=== PATIENT | male | born 1945 | race Caucasian/White ===

== ENCOUNTER → 2020-01-10 13:29 | Outpatient (CLI) | payer MEDICARE, SELFPAY ==
[2020-01-10 14:09] LABS: Chloride 103 mmol/L (98-107)
[2020-01-10 14:10] LABS: Potassium 4.6 mmoL/L (3.5-5.1); Sodium 139 mmol/L (136-145)
[2020-01-10 14:12] LABS: Alanine Aminotransferase 17 U/L (12-78); Albumin Level 3.9 g/dl (3.5-5.0); Albumin/Globulin Ratio 1.3 (1.1-1.8); Alkaline Phosphatase 93 U/L (38-126); Aspartate Amino Transferase 27 U/L (17-59); Bilirubin,Total 0.7 mg/dl (0.2-1.3); Blood Urea Nitrogen 17 mg/dl (9-20); Estimated Glomerular Filt Rate 60 ml/min (>60); GFR (African American) 72 ML/MIN (>60); Globulin 3.1 g/dL (1.3-3.2)
[2020-01-10 14:13] LABS: Anion Gap 12.6 mEq/L (5-15); Calcium 8.9 mg/dl (8.4-10.2); Carbon Dioxide 28 mmol/L (22.0-30.0); Glucose 104 mg/dl (74-100)
[2020-01-10 14:32] LABS: Hemoglobin A1C 7.3 % (4.0-6.0)
== END ==
PROVIDERS: Visit Provider Family Medicine
DX: E11.9 Type 2 diabetes mellitus without complications (principal)
CPT/HCPCS: 80053; 83036

== ENCOUNTER → 2020-06-27 18:28 | Outpatient (CLI) | payer MEDICARE, SELFPAY ==
[2020-06-27 19:37] LABS: Alanine Aminotransferase 17 U/L (12-78); Albumin Level 3.9 g/dl (3.5-5.0); Albumin/Globulin Ratio 1.2 (1.1-1.8); Alkaline Phosphatase 116 U/L (38-126); Anion Gap 10.7 mEq/L (5-15); Aspartate Amino Transferase 23 U/L (17-59); Bilirubin,Total 0.4 mg/dl (0.2-1.3); Blood Urea Nitrogen 20 mg/dl (9-20); Carbon Dioxide 28 mmol/L (22.0-30.0); Chloride 102 mmol/L (98-107); Estimated Glomerular Filt Rate 59 ml/min (>60); GFR (African American) 72 ML/MIN (>60); Globulin 3.2 g/dL (1.3-3.2); Glucose 214 mg/dl (74-100); Potassium 4.7 mmoL/L (3.5-5.1); Sodium 136 mmol/L (136-145); Total Protein,Serum 7.1 g/dl (6.3-8.2)
[2020-06-27 19:52] LABS: Hemoglobin A1C 8.3 % (4.0-6.0)
== END ==
PROVIDERS: Visit Provider Family Medicine
DX: E11.9 Type 2 diabetes mellitus without complications (principal)
CPT/HCPCS: 80053; 83036

== ENCOUNTER → 2021-05-08 13:42 | Outpatient (CLI) | payer MEDICARE, SELFPAY ==
[2021-05-08 14:17] LABS: Basophils # 0.1 K/mm3 (0-0.2); Basophils % 1.1 % (0.1-2.0); Eosinophils # 0.2 K/mm3 (0.0-0.4); Hematocrit 42.9 % (42.0-52.0); Hemoglobin 13.7 g/dL (14.1-18.0); Lymphocytes # 1.2 K/mm3 (0.7-4.5); Lymphocytes % 21.6 % (10-50); Mean Corpuscular Hemoglobin 30.1 pg (27.0-31.2); Mean Corpuscular Volume 93.9 fl (80-94); Mean Platelet Volume 9.4 fl (7.4-10.4); Monocytes # 0.5 K/mm3 (0.1-1.0); Monocytes % 8.2 % (1.7-9.3); Neutrophils # 3.8 K/mm3 (1.8-7.8); Neutrophils % 66.1 % (37.0-80.0); Platelet Count 345 K/mm3 (142-424); Red Blood Count 4.57 M/mm3 (4.60-6.20); Red Cell Distribution Width 13.9 % (11.5-17.5); White Blood Count 5.7 K/mm3 (4.8-10.8)
[2021-05-08 15:41] LABS: Alanine Aminotransferase 17 U/L (12-78); Albumin Level 4.1 g/dl (3.5-5.0); Albumin/Globulin Ratio 1.4 (1.1-1.8); Alkaline Phosphatase 115 U/L (38-126); Anion Gap 11.4 mEq/L (5-15); Aspartate Amino Transferase 25 U/L (17-59); Bilirubin,Total 0.5 mg/dl (0.2-1.3); Blood Urea Nitrogen 17 mg/dl (9-20); Calcium 8.8 mg/dl (8.4-10.2); Carbon Dioxide 30 mmol/L (22.0-30.0); Chloride 103 mmol/L (98-107); Cholesterol 176 mg/dl (140-200); Estimated Glomerular Filt Rate 66 ml/min (>60); GFR (African American) 79 ML/MIN (>60); Globulin 2.9 g/dL (1.3-3.2); Glucose 129 mg/dl (74-100); HDL Cholesterol 35 mg/dl (40-60); Potassium 5.4 mmoL/L (3.5-5.1); Sodium 139 mmol/L (136-145); Triglycerides 102 mg/dl (30-150); VLDL Cholesterol 20 mg/dL (0-40)
[2021-05-08 15:52] LABS: Direct LDL Cholesterol 110.63 mg/dL (100-129)
[2021-05-08 16:09] LABS: Prostate Specific Ag Screen 1.2 ng/ml (0.0-4.0)
[2021-05-08 16:14] LABS: Hemoglobin A1C 7.9 % (4.0-6.0)
== END ==
PROVIDERS: Visit Provider Family Medicine
DX: E11.9 Type 2 diabetes mellitus without complications (principal); Z12.5 Encounter for screening for malignant neoplasm of prostate; Z79.84 Long term (current) use of oral hypoglycemic drugs
CPT/HCPCS: 80053; 80061; 83036; 85025; G0103

== ENCOUNTER → 2021-12-31 08:21 | Outpatient (CLI) | payer MEDICARE, SELFPAY ==
[2021-12-28 18:59] LABS: Alanine Aminotransferase 23 U/L (12-78); Albumin Level 3.5 g/dl (3.5-5.0); Albumin/Globulin Ratio 1.3 (1.1-1.8); Alkaline Phosphatase 104 U/L (38-126); Anion Gap 12.5 mEq/L (5-15); Aspartate Amino Transferase 26 U/L (17-59); Blood Urea Nitrogen 18 mg/dl (9-20); Calcium 8.7 mg/dl (8.4-10.2); Carbon Dioxide 23 mmol/L (22.0-30.0); Chloride 104 mmol/L (98-107); Estimated Glomerular Filt Rate 59 ml/min (>60); GFR (African American) 72 ML/MIN (>60); Globulin 2.8 g/dL (1.3-3.2); Glucose 235 mg/dl (74-100); Potassium 4.5 mmoL/L (3.5-5.1); Sodium 135 mmol/L (136-145); Total Protein,Serum 6.3 g/dl (6.3-8.2)
[2021-12-28 19:01] LABS: Basophils % 0.8 % (0.1-2.0); Eosinophils # 0.1 K/mm3 (0.0-0.4); Eosinophils % 2.6 % (0.1-12.0); Hematocrit 41.4 % (42.0-52.0); Lymphocytes # 1.2 K/mm3 (0.7-4.5); Lymphocytes % 22.1 % (10-50); Mean Corpuscular HGB Conc 31.3 g/dL (31.8-35.4); Mean Corpuscular Hemoglobin 29.6 pg (27.0-31.2); Mean Corpuscular Volume 94.4 fl (80-94); Mean Platelet Volume 10.3 fl (7.4-10.4); Monocytes # 0.5 K/mm3 (0.1-1.0); Monocytes % 9.6 % (1.7-9.3); Neutrophils # 3.4 K/mm3 (1.8-7.8); Platelet Count 245 K/mm3 (142-424); Red Blood Count 4.38 M/mm3 (4.60-6.20); White Blood Count 5.2 K/mm3 (4.8-10.8)
[2021-12-28 19:03] LABS: Bilirubin,Total < 0.1 mg/dl (0.2-1.3)
[2021-12-28 19:14] LABS: 25-OH Vitamin D, Total 29.3 ng/mL (30-100)
[2021-12-28 19:28] LABS: Thyroid Stimulating Hormone 0.91 uIU/mL (0.465-4.68)
== END ==
PROVIDERS: Visit Provider Family Medicine
DX: B37.2 Candidiasis of skin and nail (principal); E11.9 Type 2 diabetes mellitus without complications; E55.9 Vitamin D deficiency, unspecified
CPT/HCPCS: 80053; 82306; 83036; 84443; 85025

== ENCOUNTER → 2022-08-16 13:59 | Outpatient (CLI) | payer MEDICARE, SELFPAY ==
--- NOTE | 2022-08-16 14:05 | XR_ITS ---
FINAL REPORT CLINICAL HISTORY: pna last week FINDINGS: PA and lateral views of the chest are obtained. There is no prior exam for comparison. The cardiac and mediastinal silhouettes are within normal limits. The lungs are clear. There is no pleural effusion, pneumothorax, or acute osseous abnormality. IMPRESSION: No radiographic evidence of acute cardiac or pulmonary disease. Reviewed, Interpreted and Dictated by Herlinda Meier MD Transcribed by Tiesha Virgen Authenticated and . [facility]
[2022-08-19 09:41] LABS: Alanine Aminotransferase 24 U/L (12-78); Albumin Level 3.8 g/dl (3.5-5.0); Albumin/Globulin Ratio 1.3 (1.1-1.8); Alkaline Phosphatase 116 U/L (38-126); Anion Gap 8.4 mEq/L (5-15); Aspartate Amino Transferase 35 U/L (17-59); Bilirubin,Total 0.4 mg/dl (0.2-1.3); Blood Urea Nitrogen 19 mg/dl (9-20); Calcium 8.1 mg/dl (8.4-10.2); Carbon Dioxide 27 mmol/L (22.0-30.0); Chloride 105 mmol/L (98-107); Estimated Glomerular Filt Rate 73 ml/min (>60); GFR (African American) 88 ML/MIN (>60); Globulin 2.9 g/dL (1.3-3.2); Potassium 4.4 mmoL/L (3.5-5.1); Sodium 136 mmol/L (136-145); Total Protein,Serum 6.7 g/dl (6.3-8.2)
[2022-08-19 09:58] LABS: Glucose 245 mg/dl (74-100)
[2022-08-19 10:12] LABS: Prostate Specific Ag Screen 1.3 ng/ml (0.0-4.0)
== END ==
PROVIDERS: PCP Family Medicine; Visit Provider Family Medicine
DX: J18.9 Pneumonia, unspecified organism (principal); E11.9 Type 2 diabetes mellitus without complications; I10 Essential (primary) hypertension; Z12.5 Encounter for screening for malignant neoplasm of prostate
CPT/HCPCS: 71046; 80053; G0103

== ENCOUNTER → 2023-05-19 08:35 | Outpatient (CLI) | payer MEDICARE, SELFPAY ==
[2023-05-19 19:42] LABS: Alanine Aminotransferase 19 U/L (12-78); Albumin Level 3.7 g/dl (3.5-5.0); Albumin/Globulin Ratio 1.2 (1.1-1.8); Alkaline Phosphatase 109 U/L (38-126); Anion Gap 12.3 mEq/L (5-15); Aspartate Amino Transferase 25 U/L (17-59); Basophils # 0.1 K/mm3 (0-0.2); Basophils % 0.8 % (0.1-2.0); Bilirubin,Total 0.2 mg/dl (0.2-1.3); Blood Urea Nitrogen 18 mg/dl (9-20); Calcium 8.7 mg/dl (8.4-10.2); Carbon Dioxide 28 mmol/L (22.0-30.0); Chloride 98 mmol/L (98-107); Eosinophils # 0.2 K/mm3 (0.0-0.4); Eosinophils % 3.7 % (0.1-12.0); Estimated Glomerular Filt Rate 59 ml/min (>60); GFR (African American) 71 ML/MIN (>60); Globulin 3.1 g/dL (1.3-3.2); Glucose 338 mg/dl (74-100); Hematocrit 41.1 % (42.0-52.0); Hemoglobin 13.7 g/dL (14.1-18.0); Lymphocytes # 1.2 K/mm3 (0.7-4.5); Lymphocytes % 18.5 % (10-50); Mean Corpuscular HGB Conc 33.3 g/dL (31.8-35.4); Mean Corpuscular Hemoglobin 29.6 pg (27.0-31.2); Mean Corpuscular Volume 89.1 fl (80-94); Mean Platelet Volume 10.5 fl (7.4-10.4); Monocytes # 0.5 K/mm3 (0.1-1.0); Monocytes % 7.6 % (1.7-9.3); Neutrophils # 4.4 K/mm3 (1.8-7.8); Neutrophils % 69.4 % (37.0-80.0); Platelet Count 242 K/mm3 (142-424); Potassium 4.3 mmoL/L (3.5-5.1); Red Blood Count 4.62 M/mm3 (4.60-6.20); Red Cell Distribution Width 14.1 % (11.5-17.5); Sodium 134 mmol/L (136-145); Total Protein,Serum 6.8 g/dl (6.3-8.2); White Blood Count 6.4 K/mm3 (4.8-10.8)
[2023-05-19 19:57] LABS: Free T4 (Free Thyroxine) 1.15 ng/dl (0.78-2.19)
[2023-05-19 20:11] LABS: Thyroid Stimulating Hormone 1.22 uIU/mL (0.465-4.68)
[2023-05-19 20:40] LABS: Hemoglobin A1C 10.3 % (4.0-6.0)
== END ==
LOC: LAB.DROPOF 05-20 08:36
PROVIDERS: PCP Family Medicine; Visit Provider Family Medicine
DX: Z00.00 Encounter for general adult medical examination without abnormal findings (principal); I10 Essential (primary) hypertension; Z85.01 Personal history of malignant neoplasm of esophagus; E11.9 Type 2 diabetes mellitus without complications
CPT/HCPCS: 80053; 83036; 84439; 84443; 85025

== ENCOUNTER → 2023-06-06 12:32 | Outpatient (CLI) | payer MEDICARE, SELFPAY ==
--- NOTE | 2023-06-06 12:46 | CT_ITS ---
FINAL REPORT TECHNIQUE: Axial images through the neck soft tissue was obtained with and without contrast. Sagittal and coronal reformatted images were obtained and reviewed. This study was performed with techniques to keep radiation doses as low as reasonably achievable (ALARA). Individualized dose reduction techniques using automated exposure control or adjustment of mA and/or kV according to the patient's size were employed. CLINICAL HISTORY: Left thyroid mass FINDINGS: The nasopharynx, oral pharynx, hypopharynx, and larynx are unremarkable. No left thyroid mass or nodule is identified. There are several, less than 1 cm right thyroid lobe nodules. There are postoperative changes at the left base of the neck. There are moderate degenerative changes of the cervical spine. There are postoperative changes of the thoracic esophagus. IMPRESSION: No left thyroid mass or nodule. Several right thyroid lobe nodules. If indicated, follow-up ultrasound may be helpful. Reviewed, Interpreted and Dictated by Dann Alxe III, MD Transcribed by Sana Palomares Authenticated and [facility]
--- NOTE | 2023-06-06 12:46 | US_ITS ---
FINAL REPORT TECHNIQUE: Limited sonographic images of the thyroid were obtained. CLINICAL HISTORY: Left thyroid mass FINDINGS: The right lobe of the thyroid measures 5.1 x 2.1 x 2.3 cm. There is a 17 x 16 x 13 mm mostly solid, hypoechoic nodule consistent with TI-RADS category 3. There is a solid, hypoechoic nodule measuring 6 x 6 x 5 mm consistent with TI-RADS category 4. There is also a solid, hypoechoic nodule with microcalcification measuring 6 x 6 x 4 mm consistent with TI-RADS category 4. The left lobe of the thyroid measures 4.5 x 1.6 x 1.4 cm. There is a solid, hypoechoic nodule in the upper left thyroid lobe measuring 3 x 3 x 3 mm consistent with TI-RADS category 4. The isthmus measures 3 mm. IMPRESSION: Bilateral thyroid nodules as detailed above. Recommend continued follow-up in 6-12 months. Reviewed, Interpreted and Dictated by Dann Alex III, MD Transcribed by Sana Palomares Authenticated and [facility]
--- NOTE | 2023-06-06 13:06 | CA_ITS ---
APPROVED REPORT EXAM: Comprehensive 2D, Doppler, and color-flow Echocardiogram [employer] Director: Emily Moore, RT(R) Ht: 5 ft 7 in Wt: 209lbs BSA: 2.06 BP: 110/60 mmHg Indications: murmur, lipoma, thyroid mass, hx of esophageal cancer, HTN, hyperlipidemia 2D Dimensions Left Atrium 3.19 cm M: 3.0 - 4.0 LA Volume 31.80 mL LVOT 1.94 cm (M/F) 1.5-2.5 LA Volume Index 15.44 mL/m2 (M/F) 16-34 EF AP4 52.40 % GL Strain -15.6 % M-Mode Dimensions RVDd 3.00 cm (0.9-2.6) LVDd 4.04 cm (3.5-5.7) Ao Diam 3.30 cm (2.0-3.7) LVDs 3.07 cm (3.5-5.7) IVSd 1.25 cm (0.6-1.1) PWd 0.75 cm (0.6-1.1) EF (Teich) 48.40% FS 24.00% EDV (Teich) 71.70 mL ESV (Teich) 37.00 mL LV Diastology E Decel Time 167 (160-240 msec) E/A Ratio 0.7 MED E' 7.7 (>= 7 cm/sec) E'/MED E' Ratio 12.75 (<= 14) LAT E' 6.9 (>= 10 cm/sec) E/LAT E' Ratio 14.23 (<= 14) Aortic Valve LVOT Max 88.0 (70-110 cm/s) ALEXIS Index 0.67 cm2/m2 LVOT VTI 18.29 cm AoV Peak Ej. 200.0 (50-130 cm/s) AO Mean GR. 7.80 (<5 mmHg) AO VTI 39.5 (18-25 cm) ALEXIS (VTI) 1.37 (2.5-4.5 cm2) Mitral Valve MV E Max Ej. 98.0 (40-130 cm/s) MV A Velocity 147.0 (40-130 cm/s) E/A Ratio 0.67 MV Decel. Time 167 (160-240 ms) Tricuspid Valve TR P. Velocity 259.00 cm/s RAP Estimate 10.00 mmHg RVSP 36.90 mmHg Left Ventricle The left ventricle is normal size. The left ventricular systolic function is normal. The left ventricular ejection fraction is within the normal range. There is increased LV wall thickness. There is normal LV segmental wall motion. Diastolic function is indeterminate. LVEF is 55%. Right Ventricle The right ventricle is mildly dilated. The right ventricular systolic function is normal. Atria The left atrium size is normal. The right atrium size is normal. There is no Doppler evidence of interatrial shunt. Aortic Valve The aortic valve leaflets are mildly thickened. There is no aortic valvular stenosis. Mild aortic regurgitation. Mitral Valve Mild mitral annular calcification. The mitral valve leaflets are mildly thickened. No evidence of mitral valve stenosis. Mild mitral regurgitation. Tricuspid Valve The tricuspid valve leaflets are thin and pliable. Mild tricuspid regurgitation. RVSP is 25-30 mmHg. Pulmonic Valve The pulmonary valve is normal in structure. Trace normal biventricular systolic function. Pulmonic regurgitation. Great Vessels The aortic root is normal in size. The ascending aorta is normal in size. IVC is normal in size and collapses >50% with inspiration. Pericardium There is no pericardial effusion. Other Information Study Quality: Technically Difficult Conclusion Technically difficult study due to poor acoustic windows. Normal biventricular systolic function. Mild RV dilation. Mild AI, mild MR, mild TR. RVSP 25-30 mmHg. Electronically signed by : Maria Teresa Nicholas MD 06/09/2023 21:19:11
== END ==
PROVIDERS: PCP Family Medicine; Visit Provider Family Medicine
DX: D17.9 Benign lipomatous neoplasm, unspecified (principal); R22.1 Localized swelling, mass and lump, neck; I10 Essential (primary) hypertension; R01.1 Cardiac murmur, unspecified
CPT/HCPCS: 70492; 76536; 93306; Q9967

== ENCOUNTER 2024-04-09 12:16 | Outpatient (CLI) | payer MEDICARE, SELFPAY ==
[2024-04-09 17:56] LABS: Basophils % 0.8 % (0.1-2.0); Eosinophils # 0.2 K/mm3 (0.0-0.4); Eosinophils % 3.6 % (0.1-12.0); Hematocrit 39.4 % (42.0-52.0); Hemoglobin 13.3 g/dL (14.1-18.0); Lymphocytes # 1.2 K/mm3 (0.7-4.5); Lymphocytes % 22.4 % (10-50); Mean Corpuscular HGB Conc 33.7 g/dL (31.8-35.4); Mean Corpuscular Hemoglobin 29.4 pg (27.0-31.2); Mean Corpuscular Volume 87.1 fl (80-94); Mean Platelet Volume 8.9 fl (7.4-10.4); Monocytes # 0.5 K/mm3 (0.1-1.0); Monocytes % 8.3 % (1.7-9.3); Neutrophils # 3.5 K/mm3 (1.8-7.8); Platelet Count 278 K/mm3 (142-424); Red Blood Count 4.53 M/mm3 (4.60-6.20); Red Cell Distribution Width 14.6 % (11.5-17.5); White Blood Count 5.4 K/mm3 (4.8-10.8)
[2024-04-09 18:18] LABS: Alanine Aminotransferase 21 U/L (12-78); Albumin Level 3.8 g/dl (3.5-5.0); Albumin/Globulin Ratio 1.3 (1.1-1.8); Alkaline Phosphatase 104 U/L (38-126); Anion Gap 2.6 mEq/L (5-15); Aspartate Amino Transferase 27 U/L (17-59); Bilirubin,Total 0.7 mg/dl (0.2-1.3); Blood Urea Nitrogen 17 mg/dl (9-20); Calcium 9.1 mg/dl (8.4-10.2); Carbon Dioxide 32 mmol/L (22.0-30.0); Chloride 105 mmol/L (98-107); Chol/HDL Ratio 3.9 (1-3.5); Cholesterol 193 mg/dl (140-200); Estimated Glomerular Filt Rate 59 ml/min (>60); GFR (African American) 71 ML/MIN (>60); Globulin 2.9 g/dL (1.3-3.2); Glucose 112 mg/dl (74-100); HDL Cholesterol 50 mg/dl (40-60); Potassium 4.6 mmoL/L (3.5-5.1); Sodium 135 mmol/L (136-145); Total Protein,Serum 6.7 g/dl (6.3-8.2); Triglycerides 113 mg/dl (30-150); VLDL Cholesterol 23 mg/dL (0-40)
[2024-04-09 18:29] LABS: Direct LDL Cholesterol 112.97 mg/dL (100-129)
[2024-04-09 18:43] LABS: Hemoglobin A1C 8.5 % (4.0-6.0)
[2024-04-09 18:48] LABS: Prostate Specific Ag Screen 1.4 ng/ml (0.0-4.0)
[2024-04-09 20:07] LABS: Thyroid Stimulating Hormone 0.93 uIU/mL (0.465-4.68)
== END 2024-04-09 23:59 | disposition home or self-care (01) ==
LOC: LAB.DROPOF 04-10 10:37
PROVIDERS: PCP Family Medicine; Visit Provider Family Medicine
DX: E78.5 Hyperlipidemia, unspecified (principal); I10 Essential (primary) hypertension; E11.9 Type 2 diabetes mellitus without complications; Z12.5 Encounter for screening for malignant neoplasm of prostate; E04.1 Nontoxic single thyroid nodule; Z85.01 Personal history of malignant neoplasm of esophagus; D17.9 Benign lipomatous neoplasm, unspecified
CPT/HCPCS: 80053; 80061; 83036; 84443; 85025; G0103

== ENCOUNTER 2024-10-19 10:29 | Outpatient (CLI) | payer MEDICARE, SELFPAY ==
--- OUTSIDE RECORDS SUMMARY | 2024-10-19 10:32 | XMS_ITS | Data Portability ---
Author Organization [place] - [facility] [place], [facility] ADMIN Address [address] [place] [address] Assessment No assessment recorded. Plan of Treatment Reminders Order Date Submit Date Provider Last Modified By Organization Details Last Modified Time Details Appointments None record ed. Lab None record ed. Referral None record ed. Procedures None record ed. Surgeries None record ed. Imaging None record ed. Medication Orders None record ed. Patient TargetsNo targets recorded. Patient Instructions Encounter Date Encounter Id Patient Instructions Last Modified By Organization Details Last Modified Time 04/23/2022 [id number] Danay Concepcion APRN have reviewed the past medical, medications, family, and social histories along with ROS and all orders in today? s record, and have noted any changes. [email or web address] Not available 04/23/2022 15:49:13 Reason for Referral None Reported. Problems Name Problem SNOMED Code Status Onset Date Resolution Date Notes Provider Name and Address Organization Details Recorded Time Hypertensi ve disorder 64494082 Active Eva Daniele null, [place] - [facility] - [facility] [place] 2 14:43:14 Diabetes mellitus 41782281 Active [place] Daniele null, [place] [facility] [place] 2 14:43:24 Hyperchole sterolemia 50947943 Active Eva Daniele null, [place] [facility] [place] 2 14:43:38 Allergic rhinitis 14951821 Active Eva Daniele null, [place] [facility] [place] 2 14:44:00 Anxiety 34030345 Active Eva Daniele null[place] - [facility] - [facility] & [place] 2 14:44:10 History of malignant neoplasm 973745696 Active Eva Daniele null, [place] - [facility] - [place] & [place] 2 14:44:32 Otalgia of left ear 9226813355 Active 2021 [address], [place], [address] , [place] - [facility] - [place] & [place] 2 15:00:12 Foreign body in left ear 2235347310841 9100 Active 2021 [address], [place], [address] , [place] - [facility] - [place] & [place] 2 15:00:17 Sensorineu ral hearing loss of bilateral ears 845658179 Active 2021 YOANDY Valentino [address] [place] [address],[address], [place], [address] , [place] [facility] - [place] & [place] 2 15:48:25 Sensorineu ral hearing loss 78967254 Active 2023 CHAUNCEY CASTANO, AUD [address] [facility], [place], [address] , [place] - [facility] - [place] & [place] 4 14:16:34 Problem Notes None recorded. Procedures Surgical History Date Name Laterality Status Provider Name and Address Organization Details Recorded Time 01/22/20 23 Removal of foreign body from ear canal completed YOANDY Valentino [address] [place] [address],[address], [place], [address], [place] [facility] - [place] & [place] 01/21/2023 10:52:02 04/23/20 22 Removal of foreign body from ear canal completed YOANDY Valentino [address] [place] [address],[address], [place], [address], [place] [facility] - [place] & [place] 04/23/2022 14:59:48 cholecystectomy completed Eva Daniele [place] - [facility] - [place] & [place] 04/23/2022 14:45:48 hemorrhoidectomy completed Eva Sanabria [place] - [facility] - [place] & [place] 04/23/2022 14:46:07 procedure on esophagus completed Eva NAIR - [facility] & [place] 04/23/2022 14:47:00 Imaging Results None recorded. Procedure Notes None recorded. Medical Equipment None Reported. Allergies No known drug allergies Medications Name Sig Start Date Stop Date Status Note LastModified by Organization Details LastModified Time benzonatate 200 mg capsule active Not Available Not Available Not Available hydrocodone 5 mg-acetaminophen 325 mg tablet active Not Available Not Availabl e Not Available ondansetron HCl 4 mg tablet active Not Available Not Available No t Available glimepiride 2 mg tablet active Not Available Not Available Not Available amoxicillin 875 mg tablet active Not Available Not Available Not Available meclizine 25 mg tablet active Not Available Not Available Not Available amlodipine 10 mg tablet active Not Available Not Available Not Available metformin 1,000 mg tablet active Not Available Not Available Not Available omeprazole 20 mg capsule,delayed release active Not Available Not Available Not Available levofloxacin 500 mg tablet active Not Available Not Available Not Available levofloxacin 750 mg tablet active Not Available Not Available Not Available methylprednisolone 4 mg tablets in a dose pack active Not Available Not Available No t Available albuterol sulfate HFA 90 mcg/actuation aerosol inhaler active Not Available Not Availa ble Not Available paroxetine 40 mg tablet active Not Available Not Available Not Available cefdinir 300 mg capsule active Not Available Not Available Not Available losartan 100 mg tablet active Not Available Not Available Not Available fluticasone propionate 50 mcg/actuation nasal spray,suspension active Not Available Not Avail able Not Available amoxicillin 875 mg-potassium clavulanate 125 mg tablet active Not Available Not Available Not Available amlodipine 10 mg-benazepril 20 mg capsule active Not Available Not Available Not Available Mucus DM Max ER 60 mg-1,200 mg tablet,extended release active Not Available Not Available Not Available Vitals Date Recorded Body height Provider Name an d Address Organization Details Last Updated DateTime 07/02/2022 174.24 cm Eva NAIR - [facility] & [place] 07/02/2022 11:56:12 Date Recorded Body height Oxygen saturation Oxygen saturation in Arterial blood by Pulse oximetry Heart rate Systolic blood pressure Diastolic blood pressure Provider Name and Address Organization Details Last Updated DateTime 3 174.24 cm 96 % 96 % 83 /min 118 mm[Hg] 70 mm[Hg] Nicole Caicedo [place] - [facility] & [facility] 10:37:16 Date Recorded Body height Body mass index (BMI) Body weight Provider Name and Address Organization Details Last Updated DateTime 04/23/2022 174.24 cm 31.1 kg/m2 11387.21 g Eva Sanabria [place] - [facility] & [facility] 04/23/2022 14:22:18 Social History None recorded. Functional Status None recorded. Mental Status None recorded. Family History Relationship Description Onset Age of this Age Resolved Age Notes LastModified by Organization Details LastModified Time Father Malignant neoplasm of brain deceas ed [email or web address] Not available 04/23/2022 14:44:57 Father Malignant tumor of colon [email or web address] Not available 2021 14:45:16 Medical History Condition Response Anxiety Disorder Y Allergies/Hayfever Y Cancer Y Hypertension Y Past Encounters Encounter ID Performer Location Encounter Start Date Encounter Closed Date Diagnosis/Indication Diagnosis SNOMED-CT Code Diagnosis ICD10 Code Diagnosis Note [id number] [place] [address] 04/23/2022 14:04:59 04/23/2022 14:26:28 Foreign body in left ear 8445213356 6489590 T16.2XXA Hearing aid tip removed from left eac at today's visit. No trauma from removal. Follow up prn., Otalgia of left ear 1010 274613 H92.02 This is improved following removal. Advised patient to call the office if he has any residual pain or recurrence of pain. Sensorineu ral hearing loss of bilateral ears 177174544 H90.3 Continue hearing aid use. [id number] YOANDY Valentino[address] [place] [address] 07/02/2022 11:55:06 07/02/2022 11:58:59 Foreign body in left ear 1000809260 7025703 T16.2XXA Hearing aid tip removed from left eac at today's visit. No trauma from removal. Follow up prn., [id number] YOANDY ValentinoLC [address] [place] [address] 01/21/2023 10:32:02 01/21/2023 10:59:50 Foreign body in left ear 1648081299 1383885 T16.2XXA Hearing aid tip removed from left eac at today's visit. No trauma from removal. Follow up prn., [id number] SAMIRA ALCAZAR ENT [facility] [facility] [place] [address] 03/29/2024 13:43:13 03/29/2024 14:13:35 Sensorineural hearing loss 49827412 H90.3 Health Concerns Section Related Observation LastModified by Organization Detai ls LastModified Time None Recorded Concern Status LastModified by Organization Details LastModified Time None Recorded Advance Directives Directive None Recorded Payers Encounter Date Sequence Insurance Name Policy Number Policy Gaxiola Covered Member ID Gaxiola Member ID Guarantor Name 04/23/2022 1 [place] Dann Lino Aysha [id number] Dann Huynh Aysha 04/23/2022 2 [facility] (MEDICARE REPLACEMENT/A DVANTAGE - PPO) [id number] Dann Olmstead [id number] Dann Lino Aysha 07/02/2022 1 [place] Dann Lino Aysha [id number] Dann Huynh Aysha 07/02/2022 2 [facility] (MEDICARE REPLACEMENT/A DVANTAGE - PPO) [id number] Dann Olmstead [id number] Dann Lino Aysha 01/21/2023 1 [place] Dann Lino Aysha [id number] Dann Lino Aysha 01/21/2023 2 [facility] (MEDICARE REPLACEMENT/A DVANTAGE - PPO) [id number] Dann Olmstead [id number] Dann Olmstead 03/29/2024 1 [place] Dann Lino Aysha [id number] Dann Lino Aysha 03/29/2024 2 [facility] (MEDICARE REPLACEMENT/A DVANTAGE - PPO) [id number] Dann Olmstead [id number] Dann Olmstead Notes Date Note Type Note Provider Name and Address Organization Details Recorded Time 04/23/2022 text/html Patient thinks he has a hearing aid tip stuck in left ear. He reports pain in the left ear that started this morning. He reports his did try to get the hearing aid tip out for him with no luck. He wears hearing aids in both ears. YOANDY Valentino [address] [facility],[address], [place], [address], [facility] [place] & [place] 04/23/2022 15:50:47 01/21/2023 text/html Patient is here for hearing aide tip removal, states he thinks the tip of his hearing aide is in his left ear. YOANDY Valentino [address] [facility] [address], [place], [address], [facility] - [facility] - [place] & [place] 01/21/2023 10:52:26 03/29/2024 text/html Patient was seen today for a hearing aid service. Cleaned and adjusted hearing aids this date. CHAUNCEY CASTANO, AUD [address] [facility], [place], [address], [place] - [facility] - [facility] 03/29/2024 14:16:53
--- NOTE | 2024-10-19 10:37 | XR_ITS ---
FINAL REPORT TECHNIQUE: Chest PA & Lateral CLINICAL HISTORY: LLL pneumonia, cough, bronchitis COMPARISON: 08/16/2022 FINDINGS: 2 views of the chest were performed. The heart size is normal. The mediastinum is within normal limits. The lungs are underinflated. There are mild chronic changes at the lung bases. There are no pleural effusions. There is no pneumothorax. The bony thorax appears intact. IMPRESSION: Underinflation without acute cardiopulmonary process. Reviewed, Interpreted and Dictated by Kwame Johnston MD Transcribed by Soco Nolan Authenticated and [facility]
== END 2024-10-19 23:59 | disposition home or self-care (01) ==
LOC: RAD 10:30
PROVIDERS: PCP Family Medicine; Visit Provider Nurse Practitioner
DX: J18.9 Pneumonia, unspecified organism (principal); R05.9 Cough, unspecified; J40 Bronchitis, not specified as acute or chronic
CPT/HCPCS: 71046

== ENCOUNTER 2024-11-03 12:00 | Outpatient (CLI) | payer MEDICARE, SELFPAY ==
[2024-11-03 18:39] LABS: Basophils % 0.5 % (0.1-2.0); Eosinophils # 0.2 Kmm3 (0.0-0.4); Eosinophils % 2.5 % (0.1-12.0); Hematocrit 33.7 % (42.0-52.0); Hemoglobin 10.7 g/dL (14.1-18.0); Immature Granulocytes # 0.03 10^3uL; Immature Granulocytes % 0.4 %; Lymphocytes # 0.7 K/mm3 (0.7-4.5); Lymphocytes % 8.5 % (10-50); Mean Corpuscular HGB Conc 31.8 g/dL (31.8-35.4); Mean Corpuscular Hemoglobin 28.8 pg (27.0-31.2); Mean Corpuscular Volume 90.6 fl (80-94); Monocytes # 0.9 K/mm3 (0.1-1.0); Monocytes % 11.7 % (1.7-9.3); Neutrophils % 76.4 % (37.0-80.0); Nucleated Red Blood Cells # 0 10^3/uL; Nucleated Red Blood Cells % 0 %; Platelet Count 230 K/mm3 (142-424); Red Blood Count 3.72 M/mm3 (4.60-6.20); Red Cell Distribution Width 14.6 % (11.5-17.5); White Blood Count 7.9 K/mm3 (4.8-10.8)
[2024-11-03 19:08] LABS: Alanine Aminotransferase 18 U/L (12-78); Albumin Level 3.4 g/dl (3.5-5.0); Albumin/Globulin Ratio 1.3 (1.1-1.8); Alkaline Phosphatase 88 U/L (38-126); Aspartate Amino Transferase 18 U/L (17-59); Bilirubin,Total 0.6 mg/dl (0.2-1.3); Blood Urea Nitrogen 18 mg/dl (9-20); Calcium 8.2 mg/dl (8.4-10.2); Carbon Dioxide 26 mmol/L (22.0-30.0); Chloride 105 mmol/L (98-107); Estimated Glomerular Filt Rate 65 ml/min (>60); GFR (African American) 79 ML/MIN (>60); Globulin 2.7 g/dL (1.3-3.2); Glucose 122 mg/dl (74-100); Sodium 133 mmol/L (136-145); Total Protein,Serum 6.1 g/dl (6.3-8.2)
[2024-11-03 19:18] LABS: NT Pro Brain Natriuretic Pep. 1200 pg/mL (0-450)
[2024-11-03 19:21] LABS: 25-OH Vitamin D, Total 15.1 ng/mL (30-100)
[2024-11-03 19:40] LABS: Thyroid Stimulating Hormone 1.04 uIU/mL (0.465-4.68)
[2024-11-03 19:59] LABS: Vitamin B12 251 pg/mL (239-931)
[2024-11-03 23:04] LABS: Hemoglobin A1C 7.1 % (4.0-6.0)
== END 2024-11-03 23:59 | disposition home or self-care (01) ==
LOC: LAB.DROPOF 11-04 08:35
PROVIDERS: PCP Nurse Practitioner; Visit Provider Nurse Practitioner
DX: E11.9 Type 2 diabetes mellitus without complications (principal); R53.83 Other fatigue; R06.02 Shortness of breath; E55.9 Vitamin D deficiency, unspecified
CPT/HCPCS: 80053; 82306; 82607; 83036; 83880; 84443; 85025

== ENCOUNTER 2024-11-15 14:45 | Outpatient (CLI) | payer MEDICARE, SELFPAY ==
--- OUTSIDE RECORDS SUMMARY | 2024-11-15 14:48 | XMS_ITS | Data Portability ---
Author Organization [place] [facility] [place], [facility] ADMIN Address [address] [place] [address] Assessment No assessment recorded. Plan of Treatment [...] By Organization Details Last Modified Time 04/23/2022 [id number] Danay Concepcion APRN have reviewed the past medical, medications, family, and social histories along with ROS and all orders in today? s record, and have noted any changes. [email or web address] Not available 04/23/2022 15:49:13 Reason for Referral None Reported. Problems Name Problem SNOMED Code Status Onset Date Resolution Date Notes Provider Name and Address Organization Details Recorded Time Hypertensi ve disorder 19211177 Active Eva Daniele null, [place] - [facility] - [facility] & [place] 2 14:43:14 Diabetes mellitus 47207476 Active Eva Daniele null[place] [facility] [place] 2 14:43:24 Hyperchole sterolemia 45747267 Active Eva Daniele null[place] [facility] [place] 2 14:43:38 Allergic rhinitis 89008245 Active Eva [place]iele [place] [facility] [facility] & [place] 2 14:44:00 Anxiety 36047134 Active Eva [place]iele null[place] - [facility] & [place] 2 14:44:10 History of malignant neoplasm 160974481 Active Eva Daniele null[place] - [place] & [place] 2 14:44:32 Otalgia of left ear 1452115173 Active 2021 [address], [place], [address] , [place] - [facility] - [place] & [place] 2 15:00:12 Foreign body in left ear 7448951839578 9100 Active 2021 LAK[address]MI [address], [place], [address] , [place] - [facility] - [place] & [place] 2 15:00:17 Sensorineu ral hearing loss of bilateral ears 464812962 Active 2021 YOANDY Valentino [address] [place] [address],[address], [place], [address] , [place] [facility] - [place] & [place] 2 15:48:25 Sensorineu ral hearing loss 40923378 Active 2023 CHAUNCEY CASTANO, AUD [address] [facility], [place], [address] , [place] - [facility] - [place] & [place] 4 14:16:34 Problem Notes None recorded. Procedures Surgical History Date Name Laterality Status Provider Name and Address Organization Details Recorded Time 01/22/20 23 Removal of foreign body from ear canal completed YOANDY Valentino [address] [place] [address],[address], [place], [address], [place] - [facility] - [place] & [place] 01/21/2023 10:52:02 04/23/20 22 Removal of foreign body from ear canal completed YOANDY Valentino [address] [place] [address],[address], [place], [address], [place] - [place] & [place] 04/23/2022 14:59:48 cholecystectomy completed Eva Daniele [place] - [place] - [place] & [place] 04/23/2022 14:45:48 hemorrhoidectomy completed Eva Sanabria K Y - [facility] - [place] & [place] 04/23/2022 14:46:07 procedure on esophagus completed Eva NAIR - [facility] & [place] 04/23/2022 14:47:00 Imaging Results None recorded. Procedure [...] 174.24 cm Eva NAIR - [facility] & [place] 07/02/2022 11:56:12 Date Recorded Body height Oxygen saturation Oxygen saturation in Arterial blood by Pulse oximetry Heart rate Systolic blood pressure Diastolic blood pressure Provider Name and Address Organization Details Last Updated DateTime 3 174.24 cm 96 % 96 % 83 /min 118 mm[Hg] 70 mm[Hg] Nicole Caicedo [place] - [facility] & [place] 10:37:16 Date Recorded Body height Body mass index (BMI) Body weight Provider Name and Address Organization Details Last Updated DateTime 04/23/2022 174.24 cm 31.1 kg/m2 89505.21 g Eva Sanabria [place] - [facility] [facility] & [place] 04/23/2022 14:22:18 Social History None recorded. Functional [...] SNOMED-CT Code Diagnosis ICD10 Code Diagnosis Note [id number] [address] [address] 04/23/2022 14:04:59 04/23/2022 14:26:28 Foreign body in left ear 3487457633 2104595 T16.2XXA Hearing aid tip removed from left eac at today's visit. No trauma from removal. Follow up prn., Otalgia of left ear 1010 678057 H92.02 This is improved following removal. Advised patient to call the office if he has any residual pain or recurrence of pain. Sensorineu ral hearing loss of bilateral ears 820309951 H90.3 Continue hearing aid use. [id number] YOANDY Valentino[address] [place] [address] 07/02/2022 11:55:06 07/02/2022 11:58:59 Foreign body in left ear 7704684427 2320684 T16.2XXA Hearing aid tip removed from left eac at today's visit. No trauma from removal. Follow up prn., [id number] YOANDY ValentinoLC [address] [place] [address] 01/21/2023 10:32:02 01/21/2023 10:59:50 Foreign body in left ear 1392347735 5079475 T16.2XXA Hearing aid tip removed from left eac at today's visit. No trauma from removal. Follow up prn., [id number] SAMIRA ALCAZAR ENT [facility] [place] [address] [address] [place] [address] 03/29/2024 13:43:13 03/29/2024 14:13:35 Sensorineural hearing loss 80770536 H90.3 Health Concerns Section Related Observation LastModified by Organization Detai ls LastModified Time None Recorded Concern Status LastModified by Organization Details LastModified Time None Recorded Advance Directives Directive None Recorded Payers Insurance Date Sequence Insurance Name Policy Number Policy Gaxiola Covered Member ID Gaxiola Member ID Guarantor Name 01/04/2019 1 [facility] (HMO) [id number] Dann Olmstead [id number] Dann Olmstead 02/18/2019 1 [facility] (PPO) [id number] Dann Olmstead [id number] Dann Olmstead 03/29/2024 1 [place] Dann Huynh Aysha [id number] Dann Lino Aysha 03/29/2024 2 [facility] (MEDICARE REPLACEMENT/A DVANTAGE - PPO) [id number] Dann Olmstead [id number] Dann Huynh Aysha Notes Date Note Type Note Provider Name [...] hearing aids in both ears. YOANDY Valentino [address] [employer],[address], [place], [address], [facility] - [facility] - [place] & [place] 04/23/2022 15:50:47 01/21/2023 text/html Patient is here for hearing aide tip removal, states he thinks the tip of his hearing aide is in his left ear. Danay Rubén, [address], [place], [address], [place] - [facility] [facility] & [place] 01/21/2023 10:52:26 03/29/2024 text/html Patient was seen today for a hearing aid service. Cleaned and adjusted hearing aids this date. CHAUNCEY CASTANO, AUD [address] [facility], [place], [address], [place] - [facility] [facility] & [place] 03/29/2024 14:16:53
--- NOTE | 2024-11-15 15:15 | CA_ITS ---
APPROVED REPORT EXAM: Comprehensive 2D, Doppler, and color-flow Echocardiogram Bit Sharpener Operator: Liz Ellison RVT Ht: 5 ft 8 in Wt: 220lbs BSA: 2.13 BP: 110/56 mmHg Indications: MAURICIO,MURMUR,DM,HTN,HLD,EX SMOKER,HX ESOPHAGEAL CA 2D Dimensions IVSd 1.95 cm M: 0.6-1.2 LVEF (Visual) 54.90 % PWd 0.96 cm M: 0.6 - 1.2 LVDd 3.85 cm M: 4.2 - 5.9 LVDs 2.77 cm M: 2.5 - 4.0 M-Mode Dimensions LA Diam 3.54 cm (1.9-4.0) TAPSE 2.02 (<1.7) LV Diastology E Decel Time 217 (160-240 msec) E/A Ratio 0.8 Aortic Valve ALEXIS Index 0.98 cm2/m2 AoV Peak Ej. 254.0 (50-130 cm/s) AO Peak GR. 25.90 mmHg AO Mean GR. 17.50 (<5 mmHg) AO VTI 48.7 (18-25 cm) ALEXIS (VTI) 2.14 (2.5-4.5 cm2) Mitral Valve MV E Max Ej. 125.0 (40-130 cm/s) MV A Velocity 157.0 (40-130 cm/s) E/A Ratio 0.80 MV Mean Gr. 4.90 (<2mmHg) MV PHT 63.0 ms Pulmonary Valve PV Peak Velocity 98.0 (50-150 cm/s) Tricuspid Valve TR P. Velocity 279.00 cm/s RAP Estimate 10.00 mmHg RVSP 41.20 mmHg Left Ventricle The left ventricle is normal size. The left ventricular systolic function is normal. The left ventricular ejection fraction is within the normal range. There is increased overall thickness. There is normal LV segmental wall motion. Transmitral Doppler flow pattern suggests impaired LV relaxation. LVEF is 55%. Right Ventricle Right ventricle is mildly dilated. The right ventricular systolic function is normal. Atria Left atrium is mildly dilated. Right atrium is mildly dilated. There is no Doppler evidence of interatrial shunt. Aortic Valve Aortic valve is mildly thickened. Mild aortic regurgitation. Mild aortic stenosis is present. ALEXIS by continuity equation is 1.6 cm???. Peak velocity 2.8 m/s. Mean AV gradient 15 mmHg. Max AV gradient 28 mmHg. Mitral Valve The mitral valve leaflets are mildly thickened. Mild mitral regurgitation. No evidence of mitral valve stenosis. Tricuspid Valve Tricuspid valve is grossly normal in structure and function. Tricuspid regurgitation. RVSP 25-30 mmHg. Pulmonic Valve The pulmonary valve is normal in structure. Trace pulmonic regurgitation. Great Vessels The aortic root is normal in size. IVC is normal in size and collapses >50% with inspiration. Pericardium There is no pericardial effusion. Other Information Study Quality: Fair Conclusion Normal biventricular systolic function. Mild RV dilation. Mild biatrial dilation. Mild (ALEXIS by continuity equation is 1.6 cm???. Peak velocity 2.8 m/s. Mean AV gradient 15 mmHg. Max AV gradient 28 mmHg). Mild AI, mild MR, mild TR. Electronically signed by : Maria Teresa Nicholas MD 11/16/2024 15:04:12
== END 2024-11-15 23:59 | disposition home or self-care (01) ==
LOC: RT 14:46
PROVIDERS: PCP Nurse Practitioner; Visit Provider Nurse Practitioner
DX: I08.3 Combined rheumatic disorders of mitral, aortic and tricuspid valves (principal); E11.9 Type 2 diabetes mellitus without complications; I10 Essential (primary) hypertension; E78.5 Hyperlipidemia, unspecified; Z87.891 Personal history of nicotine dependence
CPT/HCPCS: 93306

== ENCOUNTER 2024-11-25 11:35 | Outpatient (CLI) | payer MEDICARE, SELFPAY ==
--- NOTE | 2024-11-25 | CA_ITS ---
APPROVED REPORT Exam: Pharmacologic Technologist: Keyanna Toscano Ht: 5 ft 8 in Wt: 216 lbs BSA: 2.11 m2 Medical History Medications: albuterol, amlodipine, cetirizine, furosemide, glimepiride, losartan, meclizine, montekulast, omeprazole, paroxetine HCI, actos. Stress Test Details Test: Lexiscan Reason for pharmacologic stress test: physical limitation. HR Resting HR: 92 bpm Max Heart Rate (APMHR): 143 bpm Max HR Achieved: 99 bpm Target HR (85% APMHR): 122 bpm % of APMHR: 69 Recovery HR: 96 bpm BP Resting BP: 126.0/60.0 mmHg Max BP: 126.0/60.0 mmHg Recovery BP: 103.0/46.0 mmHg ECG Stress ECG Conclusion Symptoms: SOB with Lexiscan infusion. Arrhythmias/Ectopy: None. ST-T Changes: unremarkable with Lexiscan. Electronically signed by : Maria Teresa Nicholas MD 11/27/2024 21:05:02
--- NOTE | 2024-11-25 11:38 | XR_ITS ---
FINAL REPORT TECHNIQUE: Chest PA & Lateral CLINICAL HISTORY: dyspnea COMPARISON: 10/19/2024 FINDINGS: 2 views of the chest were performed. The heart size is normal. The mediastinum is within normal limits. There is a left infrahilar airspace opacity, which may be due to a small focus of pneumonia. The right lung is clear. There are no pleural effusions. There is no pneumothorax. The bony thorax appears intact. IMPRESSION: Left infrahilar airspace opacity, which may represent a small focus of pneumonia. Follow-up radiographs are suggested. Reviewed, Interpreted and Dictated by Kwame Johnston MD Transcribed by Keena Rodríguez Authenticated and . [facility]
--- OUTSIDE RECORDS SUMMARY | 2024-11-25 11:38 | XMS_ITS | Data Portability ---
Author Organization [place] - [facility] & [place], [facility] ADMIN Address [address] [place] [id number] Assessment No assessment recorded. Plan of Treatment [...] By Organization Details Last Modified Time 04/23/2022 [id number] Danay Concepcion APRN have reviewed the past medical, medications, family, and social histories along with ROS and all orders in today s record, and have noted any changes. [email or web address] Not available 04/23/2022 15:49:13 Reason for Referral None Reported. Problems Name Problem SNOMED Code Status Onset Date Resolution Date Notes Provider Name and Address Organization Details Recorded Time Hypertensi ve disorder 96848780 Active Eva Daniele null, [place] - [facility] - [place] & [place] 2 14:43:14 Diabetes mellitus 89367505 Active Eva Daniele null, [place] [facility] & [place] 2 14:43:24 Hyperchole sterolemia 52711601 Active Eva Daniele null[place] [facility] & [place] 2 14:43:38 Allergic rhinitis 72877291 Active Eva Daniele null, [place] [facility] & [place] 2 14:44:00 Anxiety 07459262 Active Eva Daniele null, [place] [facility] & [place] 2 14:44:10 History of malignant neoplasm 389816865 Active Eva Daniele null, [place] [facility] [place] & [place] 2 14:44:32 Otalgia of left ear 6046633301 Active [address], [place], [address] , [place] - [facility] - [place] & [place] 2 15:00:12 Foreign body in left ear 4883990294614 9100 Active 2021 YOANDY Valentino [address] [place] [address],[address], [place], [address] , [place] [facility] - [place] & [place] 2 15:00:17 Sensorineu ral hearing loss of bilateral ears 541527270 Active 2021 YOANDY Valentino [address] [place] [address],[address], [place], [address] , [place] [facility] - [place] & [place] 2 15:48:25 Sensorineu ral hearing loss 21545182 Active 2023 CHAUNCEY CASTANO, [address] [place], [address] , [place] [facility] - [place] & [place] 4 14:16:34 Problem Notes None recorded. Procedures Surgical History Date Name Laterality Status Provider Name and Address Organization Details Recorded Time 01/22/20 23 Removal of foreign body from ear canal completed YOANDY Valentino [address] [place] [address],[address], [place], [address], [place] - [facility] - [place] & [place] 01/21/2023 10:52:02 04/23/20 22 Removal of foreign body from ear canal completed YOANDY Valentino [address] [place] [address],[address], [place], [address], [place] [facility] - [place] & [place] 04/23/2022 14:59:48 cholecystectomy completed Eva Daniele [place] - [facility] - [place] & [place] 04/23/2022 14:45:48 hemorrhoidectomy completed Eva Sanabria [place] - [facility] - [place] & [place] 04/23/2022 14:46:07 procedure on esophagus completed Eva Sanabria [place] [facility] & [place] 04/23/2022 14:47:00 Imaging Results None recorded. Procedure [...] 174.24 cm Eva NAIR [facility] [place] 07/02/2022 11:56:12 Date Recorded Body height Oxygen saturation Oxygen saturation in Arterial blood by Pulse oximetry Heart rate Systolic blood pressure Diastolic blood pressure Provider Name and Address Organization Details Last Updated DateTime 3 174.24 cm 96 % 96 % 83 /min 118 mm[Hg] 70 mm[Hg] Nicole Caicedo [place] - [facility] & [place] 10:37:16 Date Recorded Body height Body mass index (BMI) Body weight Provider Name and Address Organization Details Last Updated DateTime 04/23/2022 174.24 cm 31.1 kg/m2 17457.21 g Eva Sanabria [place] [facility] & [place] 04/23/2022 14:22:18 Social History None recorded. Functional [...] SNOMED-CT Code Diagnosis ICD10 Code Diagnosis Note [id number] [address] [place] [address] 04/23/2022 14:04:59 04/23/2022 14:26:28 Foreign body in left ear [id number] T16.2XXA Hearing aid tip removed from left eac at today's visit. No trauma from removal. Follow up prn., Otalgia of left ear 1010 837063 H92.02 This is improved following removal. Advised patient to call the office if he has any residual pain or recurrence of pain. Sensorineu ral hearing loss of bilateral ears 058434135 H90.3 Continue hearing aid use. [id number] [place] [address] [place] [address] 07/02/2022 11:55:06 07/02/2022 11:58:59 Foreign body in left ear [id number] T16.2XXA Hearing aid tip removed from left eac at today's visit. No trauma from removal. Follow up prn., [id number] YOANDY Valentino [address] [place] [address] 01/21/2023 10:32:02 01/21/2023 10:59:50 Foreign body in left ear [id number] T16.2XXA Hearing aid tip removed from left eac at today's visit. No trauma from removal. Follow up prn., [id number] SAMIRA ALCAZAR ENT [facility] [facility] [address] [place] [address] 03/29/2024 13:43:13 03/29/2024 14:13:35 Sensorineural hearing loss 99525917 H90.3 Health Concerns Section Related Observation LastModified by Organization Detai ls LastModified Time None Recorded Concern Status LastModified by Organization Details LastModified Time None Recorded Advance Directives Directive None Recorded Payers Insurance Date Sequence Insurance Name Policy Number Policy Gaxiola Covered Member ID Gaxiola Member ID Guarantor Name 01/04/2019 1 [facility] (HMO) [id number] Dann Olmstead [id number] Dann Olmstead 02/18/2019 1 [facility] (PPO) [id number] Dann Olmstead [id number] Dann Olmstead 03/29/2024 1 [place] Dann Huynh Aysha [id number] Dann Lino Aysha 03/29/2024 2 [facility] (MEDICARE REPLACEMENT/A DVANTAGE - PPO) [id number] Dann Olmstead [id number] Dann Huynh Aysha Notes Date Note Type [...] aids in both ears. YOANDY Valentino [address], [place], [address], [place] - [facility] - [place] & [place] 04/23/2022 15:50:47 01/21/2023 text/html Patient is here for hearing aide tip removal, states he thinks the tip of his hearing aide is in his left ear. Danay Rubén, [address], [place], [address], [place] [facility] [place] & [place] 01/21/2023 10:52:26 03/29/2024 text/html Patient was seen today for a hearing aid service. Cleaned and adjusted hearing aids this date. CHAUNCEY CASTANO, [address], [facility], [place], [address], [place] [facility] & [place] 03/29/2024 14:16:53
--- NOTE | 2024-11-25 12:00 | NM_ITS ---
APPROVED REPORT Exam: Nuclear Stress Test Indication: SOB, Fatigue, Abnormal EKG, HTN, DM Patient Location: Outpatient Stress Tech: Keyanna [place] Tech:Tami Rodriguez PAWANGt RT(R)(N) Ht: 5 ft 8 in Wt: 215 lbs HR: 92 bpm BP: 126/60 mmHg BSA: 2.11 m2 TID: 0.99 BMI: 32.6 History: SOB, Fatigue, Abnormal EKG, HTN, DM Procedure: Patient received 0.4 mg of intravenous Lexiscan, resting heart rate 92 bpm, resting blood pressure 126/60 mmHg, with Lexiscan maximum heart rate achieved was 99 bpm which is % of the maximum predicted heart rate and blood pressure was 103/46 mmHg. With Lexiscan, patient denied any complaint of chest pain. Cardiac Stress and Resting SPECT Images: Cardiac Stress and Resting SPECT images were obtained using technetium 99m Myoview 30.8 mCi stress and 10.84 mCi at rest. Resting and stress imaging in supine and prone positions demonstrate no evidence of fixed or reversible perfusion defects. Gated imaging demonstrates normal global and regional LV systolic function. LVEF is calculated at 68%. Conclusion: No evidence of fixed or reversible perfusion defects. Gated imaging demonstrates normal global and regional LV systolic function. LVEF is calculated at 68%. Electronically signed by : Maria Teresa Nicholas MD 11/27/2024 20:57:57
[2024-11-25] MEDS: SODIUM CHLORIDE 0.9% 10ML SYR (RAD ONLY) 10 ML IV ×2 (14:06)
[2024-11-25] MEDS: ISOTOPE MYOVIEW (PER STUDY) 1 DOSE IV (14:06)
[2024-11-25] MEDS: REGADENOSON 0.4MG/5ML SYRINGE 0.4 MG IV (14:06)
== END 2024-11-25 23:59 | disposition home or self-care (01) ==
LOC: RAD 11:36
PROVIDERS: PCP Family Medicine; Visit Provider Nurse Practitioner
DX: R91.8 Other nonspecific abnormal finding of lung field (principal); R94.31 Abnormal electrocardiogram [ECG] [EKG]; R06.00 Dyspnea, unspecified; E11.9 Type 2 diabetes mellitus without complications; I10 Essential (primary) hypertension; R53.83 Other fatigue
CPT/HCPCS: 71046; 78452; 93017; 93018; A9502; J2785